=== PATIENT | female | born 1980 | race Hispanic/Latino ===

== ENCOUNTER 2017-05-01 13:42 | Observation (INO) | payer OTHER, BC ==
[~2017-05-01] VITALS: Ht 157.5 cm; Wt 93.9 kg
[2017-05-01 14:32] LABS: APPEARANCE,URINE Cloudy (CLEAR); BASOPHILS % (AUTO) 1.2 % (0.0-5.0); BILIRUBIN,URINE Negative (NEGATIVE); COLOR,URINE Yellow (YELLOW); EOSINOPHILS % (AUTO) 1.5 % (0.0-8.0); GLUCOSE, URINE (UA) Negative (NEGATIVE); HEMATOCRIT 36.1 % (36-48); KETONES,URINE Negative (NEGATIVE); LEUKOCYTE ESTERASE ,URINE Large (NEGATIVE); LYMPHOCYTES % (AUTO) 34.9 % (21.0-51.0); MEAN CORPUSCULAR HEMOGLOBIN 29.1 pg (27.0-33.0); MEAN CORPUSCULAR HGB CONC 34.3 g/dL (32.0-36.0); MEAN CORPUSCULAR VOLUME 84.8 fL (79-99); MONOCYTES % (AUTO) 7.7 % (3.0-13.0); NEUTROPHILS % (AUTO) 54.7 % (40.0-77.0); NITRATE,URINE Negative (NEGATIVE); OCCULT BLOOD,URINE Trace (NEGATIVE); PH,URINE 6.5 (5.0-8.0); PLATELET COUNT (AUTO) 335 K/uL (130-400); PROTEIN,URINE Negative (NEGATIVE); RED BLOOD CELL COUNT(AUTO) 4.25 MIL/uL (4.00-5.50); RED CELL DISTRIBUTION WIDTH 16.4 % (11.0-15.5); UROBILINOGEN,URINE 0.2 mg/dL (0.2-1.0); WHITE BLOOD COUNT (AUTO) 12.5 K/uL (4.8-10.8)
[2017-05-01 14:39] LABS: BACTERIA,URINE Few /HPF (None Seen); RBC,URINE 0-1 /HPF (0-1); RENAL EPITHELIAL CELLS,URINE Few /LPF (None Seen); TRANSITIONAL EPI CELLS,URINE Few /LPF (None Seen); WBC,URINE 51-100 /HPF (0-1)
[2017-05-01 14:41] LABS: POTASSIUM 3.6 mmol/L (3.5-5.1)
[2017-05-01 14:47] LABS: ALBUMIN 3.4 g/dL (3.5-5.0); BILIRUBIN,TOTAL 0.4 mg/dL (0.2-1.0); TOTAL PROTEIN, SERUM 7.3 g/dL (6.0-8.3)
[2017-05-01] MEDS ORDERED: HYDROCORTISONE SOD SUCCINATE 100 MG/2 ML VIAL ONE (14:53)
[2017-05-01] MEDS ORDERED: CEFTRIAXONE SODIUM 1 GM ONE (14:54)
[2017-05-01] MEDS ORDERED: PROMETHAZINE HCL 25 MG/ML 1ML AMPULE IM ONE (14:54)
[2017-05-01] MEDS ORDERED: MORPHINE SULFATE 4 MG/1ML SYG ONE ×2 (14:55→16:11)
[2017-05-01] MEDS ORDERED: DiphenhydrAMINE HCL 50 MG/ML VIAL ONE ×2 (15:29→16:10)
[2017-05-01 18:38] VITALS: BP 123/53
[2017-05-01] MEDS ORDERED: ONDANSETRON HCL 4 MG/2 ML VIAL IVP PRN (19:15)
[2017-05-01 20:00] VITALS: BP 112/86
[2017-05-01] MEDS ORDERED: LEVOFLOXACIN 500 MG/D5W 100 ML 100 ML IV SCH (21:00)
[2017-05-01] MEDS ORDERED: SODIUM CHLORIDE 0.9% 250 ML IV ONE (21:05)
[2017-05-01] MEDS: MORPHINE SULFATE 2 MG/ML 1ML SYG IVP PRN (21:11)
[2017-05-01] MEDS ORDERED: DIPHENHYDRAMINE HCL 25 MG CAPSULE PO PRN (21:45)
[2017-05-01] MEDS: SODIUM CHLORIDE 0.9% 1000ML 1,000 ML IV SCH (22:56)
[2017-05-01] MEDS: MEPERIDINE-PF 25 MG/ML SYG IVP PRN (23:10)
[2017-05-01 23:20] VITALS: BP 97/62
[2017-05-02] MEDS: MORPHINE SULFATE 2 MG/ML 1ML SYG IVP PRN ×2 (02:07→09:27)
[2017-05-02 03:21] VITALS: BP 97/68
[2017-05-02] MEDS: MEPERIDINE-PF 25 MG/ML SYG IVP PRN (05:30)
[2017-05-02 06:17] LABS: CREATININE 0.9 mg/dL (0.5-1.5); POTASSIUM 4.1 mmol/L (3.5-5.1)
[2017-05-02] MEDS: SODIUM CHLORIDE 0.9% 1000ML 1,000 ML IV SCH (07:45)
[2017-05-02 08:06] VITALS: BP 109/75
[2017-05-02] MEDS ORDERED: DEXAMETHASONE 4 MG TAB PO SCH (09:00)
[2017-05-02] MEDS ORDERED: ENOXAPARIN SODIUM 40 MG/0.4 ML SYRINGE SQ SCH (09:00)
[2017-05-02] MEDS ORDERED: PANTOPRAZOLE SODIUM 40 MG TABLET.DR PO SCH (09:00)
[2017-05-02 11:30] VITALS: BP 91/66
[2017-05-02] MEDS ORDERED: HEPARIN SODIUM/PF 100UNIT/ML 5ML SYRINGE IV SCH (11:30)
== END 2017-05-02 12:30 | disposition home or self-care (01) ==
LOC: EDH 13:42 → EDHIP 17:19 → INTOOBSV 17:19 → 4CH 18:13
PROVIDERS: ADMIT Family Medicine; ATTEND Family Medicine
DX: N39.0 Urinary tract infection, site not specified (principal); E27.40 Unspecified adrenocortical insufficiency; Z82.3 Family history of stroke; Z80.0 Family history of malignant neoplasm of digestive organs; Z82.49 Family history of ischemic heart disease and other diseases of the circulatory system; Z83.3 Family history of diabetes mellitus; Z87.442 Personal history of urinary calculi
CPT/HCPCS: 36415 ×2; 76770; 80048; 80053; 81001; 85025; 87040 ×2; 87088; 87186; 96361 ×2; 96365; 96372; 96375 ×2; 96376; 99285; G0378 ×19; J0696; J1200 ×2; J1642; J1650; J1720; J1956; J2175 ×2; J2270 ×2; J2405; J2550; J7030 ×3; J8540; Q0163

== ENCOUNTER 2017-05-02 22:17 | Inpatient (IN) | payer OTHER, BC ==
[~2017-05-02] VITALS: Ht 157.5 cm; Wt 94.3 kg
[2017-05-02] MEDS ORDERED: VANCOMYCIN 1GM+NS 250ML 250 ML IV ONE (22:41)
[2017-05-02] MEDS ORDERED: MORPHINE SULFATE 4 MG/1ML SYG ONE (22:42)
[2017-05-02] MEDS ORDERED: VANCOMYCIN PROTOCOL PER PHARMACY IV SCH (23:15)
[2017-05-03] VITALS (7 sets, daily range): BP systolic 106–136; BP diastolic 63–78
[2017-05-03] MEDS ORDERED: MEPERIDINE-PF 25 MG/ML SYG IVP PRN (01:30)
[2017-05-03] MEDS ORDERED: ONDANSETRON HCL 4 MG/2 ML VIAL ONE ×2 (01:37→21:42)
[2017-05-03] MEDS: DiphenhydrAMINE HCL 50 MG/ML VIAL IVP PRN ×4 (01:47→21:47)
[2017-05-03] MEDS: MORPHINE SULFATE 2 MG/ML 1ML SYG IVP PRN ×4 (03:50→19:56)
[2017-05-03] MEDS ORDERED: PHARMACY COMMUNICATION MISC SCH (06:45)
[2017-05-03] MEDS ORDERED: COMPOUND IV REFRIGERATED 1 EACH IVSOLN MISC PRN (06:45)
[2017-05-03 08:05] LABS: BASOPHILS % (AUTO) 0.5 % (0.0-5.0); HEMATOCRIT 33.6 % (36-48); LYMPHOCYTES % (AUTO) 13.9 % (21.0-51.0); MEAN CORPUSCULAR HEMOGLOBIN 28.7 pg (27.0-33.0); MEAN CORPUSCULAR HGB CONC 33.7 g/dL (32.0-36.0); MEAN CORPUSCULAR VOLUME 85.4 fL (79-99); MONOCYTES % (AUTO) 6.8 % (3.0-13.0); NEUTROPHILS % (AUTO) 78.8 % (40.0-77.0); PLATELET COUNT (AUTO) 316 K/uL (130-400); RED BLOOD CELL COUNT(AUTO) 3.94 MIL/uL (4.00-5.50); RED CELL DISTRIBUTION WIDTH 16.7 % (11.0-15.5); WHITE BLOOD COUNT (AUTO) 12.3 K/uL (4.8-10.8)
[2017-05-03 08:23] LABS: CREATININE 0.9 mg/dL (0.5-1.5); POTASSIUM 3.9 mmol/L (3.5-5.1)
[2017-05-03] MEDS: PANTOPRAZOLE SODIUM 40 MG TABLET.DR PO SCH (09:21)
[2017-05-03] MEDS: DEXAMETHASONE 4 MG TAB PO SCH ×2 (09:21→19:57)
[2017-05-03] MEDS: ENOXAPARIN SODIUM 40 MG/0.4 ML SYRINGE SQ SCH (09:23)
[2017-05-03] MEDS: VANCOMYCIN 1.5 GM in SODIUM CHLORIDE 0.9% 250 ML IV SCH ×2 (09:24→19:55)
[2017-05-04] MEDS: MORPHINE SULFATE 2 MG/ML 1ML SYG IVP PRN ×6 (01:16→23:37)
[2017-05-04 04:20] VITALS: BP 107/72
[2017-05-04] MEDS: ONDANSETRON HCL 4 MG/2 ML VIAL IVP PRN ×3 (05:26→18:19)
[2017-05-04] MEDS: DiphenhydrAMINE HCL 50 MG/ML VIAL IVP PRN ×3 (05:27→18:19)
[2017-05-04 08:00] VITALS: BP 118/67
[2017-05-04] MEDS: DEXAMETHASONE 4 MG TAB PO SCH ×2 (09:39→20:22)
[2017-05-04] MEDS: ENOXAPARIN SODIUM 40 MG/0.4 ML SYRINGE SQ SCH (09:39)
[2017-05-04] MEDS: PANTOPRAZOLE SODIUM 40 MG TABLET.DR PO SCH (09:39)
[2017-05-04] MEDS: VANCOMYCIN 1.5 GM in SODIUM CHLORIDE 0.9% 250 ML IV SCH (09:50)
[2017-05-04 11:41] VITALS: BP 120/71
[2017-05-04 15:59] VITALS: BP 101/64
[2017-05-04 19:05] VITALS: BP 112/78
[2017-05-04 23:15] VITALS: BP 107/65
[2017-05-05] MEDS: DiphenhydrAMINE HCL 50 MG/ML VIAL IVP PRN ×4 (00:39→20:55)
[2017-05-05] MEDS: ONDANSETRON HCL 4 MG/2 ML VIAL IVP PRN ×4 (00:39→20:46)
[2017-05-05 03:15] VITALS: BP 107/62
[2017-05-05] MEDS: MORPHINE SULFATE 2 MG/ML 1ML SYG IVP PRN ×4 (03:32→18:19)
[2017-05-05] MEDS ORDERED: CETIRIZINE PO (04:44)
[2017-05-05] MEDS ORDERED: BUSP10TA3 PO (04:44)
[2017-05-05] MEDS ORDERED: [UNRECOGNIZED DRUG - OTHER] PO (04:44)
[2017-05-05] MEDS ORDERED: DEXA2TAB PO (04:44)
[2017-05-05] MEDS ORDERED: TRAZ-147 PO (04:44)
[2017-05-05] MEDS ORDERED: PRIMARIN PO (04:44)
[2017-05-05 05:25] LABS: HEMATOCRIT 34.6 % (36-48); MEAN CORPUSCULAR HEMOGLOBIN 29.2 pg (27.0-33.0); MEAN CORPUSCULAR HGB CONC 34.1 g/dL (32.0-36.0); MEAN CORPUSCULAR VOLUME 85.8 fL (79-99); PLATELET COUNT (AUTO) 326 K/uL (130-400); RED BLOOD CELL COUNT(AUTO) 4.04 MIL/uL (4.00-5.50); RED CELL DISTRIBUTION WIDTH 16.7 % (11.0-15.5)
[2017-05-05 05:36] LABS: BAND NEUTROPHILS % (MANUAL) 6 % (0-2); LYMPHOCYTES % (MANUAL) 18 % (22-44); SEGMENTED NEUTROPHILS % 76 % (40-70)
[2017-05-05 05:37] LABS: MAN.DIFF COMMENT-IMPRESSION MANUAL DIFFERENTIAL; PLATELET MORPHOLOGY COMMENT ADEQUATE
[2017-05-05 07:00] VITALS: BP 105/75
[2017-05-05] MEDS: PANTOPRAZOLE SODIUM 40 MG TABLET.DR PO SCH (07:59)
[2017-05-05] MEDS: DEXAMETHASONE 4 MG TAB PO SCH ×2 (07:59→20:46)
[2017-05-05] MEDS: ENOXAPARIN SODIUM 40 MG/0.4 ML SYRINGE SQ SCH (07:59)
[2017-05-05 11:06] VITALS: BP 110/70
[2017-05-05] MEDS: VANCOMYCIN 1GM+NS 250ML 250 ML IV SCH (13:50)
[2017-05-05 15:00] VITALS: BP 101/68
[2017-05-05 19:36] VITALS: BP 106/72
[2017-05-05] MEDS: PREGABALIN 75 MG CAPSULE PO SCH (20:45)
[2017-05-05 23:37] VITALS: BP 116/77
[2017-05-06] MEDS: VANCOMYCIN 1GM+NS 250ML 250 ML IV SCH ×4 (00:32→22:00)
[2017-05-06] MEDS: MORPHINE SULFATE 2 MG/ML 1ML SYG IVP PRN ×4 (00:55→19:31)
[2017-05-06] MEDS: ONDANSETRON HCL 4 MG/2 ML VIAL IVP PRN ×4 (03:03→22:58)
[2017-05-06] MEDS: DiphenhydrAMINE HCL 50 MG/ML VIAL IVP PRN ×4 (03:04→22:57)
[2017-05-06 03:15] VITALS: BP 127/83
[2017-05-06 08:00] VITALS: BP 126/77
[2017-05-06] MEDS: PREGABALIN 75 MG CAPSULE PO SCH ×3 (09:28→22:57)
[2017-05-06] MEDS: DEXAMETHASONE 4 MG TAB PO SCH ×2 (09:28→21:43)
[2017-05-06] MEDS: PANTOPRAZOLE SODIUM 40 MG TABLET.DR PO SCH (09:28)
[2017-05-06] MEDS: ENOXAPARIN SODIUM 40 MG/0.4 ML SYRINGE SQ SCH (09:29)
[2017-05-06 12:00] VITALS: BP 117/76
[2017-05-06 16:00] VITALS: BP 122/78
[2017-05-06] MEDS ORDERED: VANCOMYCIN 1GM+NS 250ML 250 ML IV ONE (17:00)
[2017-05-06 20:00] VITALS: BP 113/83
[2017-05-07] VITALS (7 sets, daily range): BP systolic 99–123; BP diastolic 63–85
[2017-05-07] MEDS: VANCOMYCIN 1GM+NS 250ML 250 ML IV SCH (01:07)
[2017-05-07] MEDS: MORPHINE SULFATE 2 MG/ML 1ML SYG IVP PRN ×4 (01:29→20:38)
[2017-05-07] MEDS: DiphenhydrAMINE HCL 50 MG/ML VIAL IVP PRN ×4 (04:55→23:32)
[2017-05-07] MEDS: ONDANSETRON HCL 4 MG/2 ML VIAL IVP PRN ×4 (04:55→23:31)
[2017-05-07] MEDS: ENOXAPARIN SODIUM 40 MG/0.4 ML SYRINGE SQ SCH ×2 (09:00→09:05)
[2017-05-07] MEDS: PANTOPRAZOLE SODIUM 40 MG TABLET.DR PO SCH (09:03)
[2017-05-07] MEDS: DEXAMETHASONE 4 MG TAB PO SCH ×2 (09:03→20:37)
[2017-05-07] MEDS ORDERED: VANCOMYCIN 1.25 GM in SODIUM CHLORIDE 0.9% 250 ML IV SCH ×3 (10:00→10:56)
[2017-05-07] MEDS: PREGABALIN 75 MG CAPSULE PO SCH (10:55)
[2017-05-07] MEDS: CYCLOBENZAPRINE HCL 10 MG TABLET PO SCH (23:31)
[2017-05-08] MEDS: MORPHINE SULFATE 2 MG/ML 1ML SYG IVP PRN ×4 (02:58→20:13)
[2017-05-08 04:00] VITALS: BP 122/85
[2017-05-08] MEDS: DiphenhydrAMINE HCL 50 MG/ML VIAL IVP PRN ×4 (05:53→20:16)
[2017-05-08] MEDS: ONDANSETRON HCL 4 MG/2 ML VIAL IVP PRN ×3 (05:53→20:13)
[2017-05-08 08:00] VITALS: BP 112/74
[2017-05-08] MEDS: ENOXAPARIN SODIUM 40 MG/0.4 ML SYRINGE SQ SCH (08:58)
[2017-05-08] MEDS: PANTOPRAZOLE SODIUM 40 MG TABLET.DR PO SCH (08:58)
[2017-05-08] MEDS: DEXAMETHASONE 4 MG TAB PO SCH ×2 (08:58→21:00)
[2017-05-08] MEDS ORDERED: HEPARIN SODIUM/PF 100UNIT/ML 5ML SYRINGE IV SCH (11:30)
[2017-05-08] MEDS: CYCLOBENZAPRINE HCL 10 MG TABLET PO SCH ×3 (11:45→21:00)
[2017-05-08 12:00] VITALS: BP 110/76
[2017-05-08 16:00] VITALS: BP 125/85
[2017-05-08 20:00] VITALS: BP 117/75
== END 2017-05-08 21:20 | disposition home or self-care (01) | DRG 690 ==
LOC: EDH 22:17 → EDHIP 22:25 → 3CH 23:55
PROVIDERS: ADMIT Family Medicine; ATTEND Family Medicine
DX: N10 Acute pyelonephritis (principal); R78.81 Bacteremia; E27.40 Unspecified adrenocortical insufficiency; N20.0 Calculus of kidney; B95.8 Unspecified staphylococcus as the cause of diseases classified elsewhere; D72.829 Elevated white blood cell count, unspecified; E66.9 Obesity, unspecified; G89.29 Other chronic pain; H35.00 Unspecified background retinopathy; I10 Essential (primary) hypertension; Z87.442 Personal history of urinary calculi; Z87.440 Personal history of urinary (tract) infections; Z90.49 Acquired absence of other specified parts of digestive tract; Z88.1 Allergy status to other antibiotic agents; Z88.8 Allergy status to other drugs, medicaments and biological substances; Z68.38 Body mass index [BMI] 38.0-38.9, adult; Z83.3 Family history of diabetes mellitus; Z82.49 Family history of ischemic heart disease and other diseases of the circulatory system; Z82.3 Family history of stroke; Z80.0 Family history of malignant neoplasm of digestive organs
CPT/HCPCS: 36415; 80048; 80202; 85025; 87040; 93306; J1200; J1642; J1650; J2175; J2270; J2405; J3370; J7030; J8540

== ENCOUNTER 2017-05-29 16:38 | Emergency (ER) | payer BC, OTHER ==
[~2017-05-29 16:38] MED LIST: BUSP10TA3 PO; CETIRIZINE PO; DEXA2TAB PO; PRIMARIN PO; TRAZ-147 PO; [UNRECOGNIZED DRUG - OTHER] PO
[2017-05-29 17:10] LABS: APPEARANCE,URINE Clear (CLEAR); BILIRUBIN,URINE Negative (NEGATIVE); COLOR,URINE Yellow (YELLOW); GLUCOSE, URINE (UA) TRACE mg/dL (NEGATIVE); KETONES,URINE Negative (NEGATIVE); LEUKOCYTE ESTERASE ,URINE Negative (NEGATIVE); NITRATE,URINE Negative (NEGATIVE); OCCULT BLOOD,URINE Negative (NEGATIVE); PROTEIN,URINE Negative (NEGATIVE); UROBILINOGEN,URINE 0.2 mg/dL (0.2-1.0)
[2017-05-29] MEDS ORDERED: PROMETHAZINE HCL 25 MG/ML 1ML AMPULE IM ONE (17:11)
[2017-05-29 17:23] LABS: BACTERIA,URINE Rare /HPF (None Seen); RBC,URINE None Seen /HPF (0-1); SQUAMOUS EPITHELIAL CELL,UR 0-2 /LPF (0-2); WBC,URINE None Seen /HPF (0-1)
[2017-05-29] MEDS ORDERED: SODIUM CHLORIDE 0.9% 1000ML 1,000 ML IV ONE (17:28)
[2017-05-29 17:33] LABS: BASOPHILS % (AUTO) 0.1 % (0.0-5.0); HEMATOCRIT 32.3 % (36-48); LYMPHOCYTES % (AUTO) 6.1 % (21.0-51.0); MEAN CORPUSCULAR HEMOGLOBIN 29.6 pg (27.0-33.0); MEAN CORPUSCULAR HGB CONC 34.5 g/dL (32.0-36.0); MEAN CORPUSCULAR VOLUME 85.9 fL (79-99); MONOCYTES % (AUTO) 0.9 % (3.0-13.0); NEUTROPHILS % (AUTO) 92.9 % (40.0-77.0); PLATELET COUNT (AUTO) 342 K/uL (130-400); RED BLOOD CELL COUNT(AUTO) 3.76 MIL/uL (4.00-5.50); RED CELL DISTRIBUTION WIDTH 17.3 % (11.0-15.5); WHITE BLOOD COUNT (AUTO) 10.5 K/uL (4.8-10.8)
[2017-05-29 17:43] LABS: CREATININE 1.5 mg/dL (0.5-1.5); POTASSIUM 4.7 mmol/L (3.5-5.1)
[2017-05-29 17:48] LABS: ALBUMIN 3.1 g/dL (3.5-5.0); BILIRUBIN,TOTAL 0.4 mg/dL (0.2-1.0)
[2017-05-29] MEDS ORDERED: MORPHINE SULFATE 2 MG/ML 1ML SYG ONE ×2 (17:54→19:22)
[2017-05-29 18:13] LABS: AMPHET/METH SCREEN,URINE NEGATIVE (NEGATIVE); BARBITURATE SCREEN, URINE NEGATIVE (NEGATIVE); BENZODIAZEPINES SCREEN,URINE NEGATIVE (NEGATIVE); CANNABINOID SCREEN,URINE NEGATIVE (NEGATIVE); COCAINE SCREEN,URINE NEGATIVE (NEGATIVE); OPIATE SCREEN,URINE NEGATIVE (NEGATIVE); PHENCYCLIDINE SCREEN,URINE NEGATIVE (NEGATIVE)
[2017-05-29] MEDS ORDERED: DiphenhydrAMINE HCL 50 MG/ML VIAL ONE (18:49)
[2017-05-29] MEDS ORDERED: DEXAMETHASONE SOD PHOSPHATE 4 MG/ML 1ML VIAL ONE (18:55)
== END 2017-05-29 19:43 | disposition home or self-care (01) ==
LOC: EDH 16:38
DX: E87.1 Hypo-osmolality and hyponatremia (principal); E86.0 Dehydration; M54.5 Low back pain; Z88.6 Allergy status to analgesic agent; Z88.8 Allergy status to other drugs, medicaments and biological substances
CPT/HCPCS: 36415; 80053; 80305; 81001; 83690; 85025; 87088; 87186; 96361; 96372; 96374; 96375; 99284; J1100; J1200; J2550; J7030

== ENCOUNTER 2017-06-03 23:02 | Emergency (ER) | payer BC ==
[2017-06-04] MEDS ORDERED: PROMETHAZINE HCL 25 MG/ML 1ML AMPULE IM ONE (00:32)
[2017-06-04] MEDS ORDERED: METHYLPREDNISOLONE SOD SUCC 125MG/2ML VIAL ONE (00:33)
[2017-06-04 00:40] LABS: HCG,QUAL RESULT NEGATIVE (NEGATIVE)
[2017-06-04 00:41] LABS: APPEARANCE,URINE CLEAR (CLEAR); COLOR,URINE YELLOW (YELLOW); PH,URINE 5.5 (5.0-8.0); PROTEIN,URINE NEGATIVE (NEGATIVE)
[2017-06-04 00:42] LABS: BILIRUBIN,URINE N (NEGATIVE); GLUCOSE, URINE (UA) NEGATIVE (NEGATIVE); KETONES,URINE NEGATIVE (NEGATIVE); LEUKOCYTE ESTERASE ,URINE NEGATIVE (NEGATIVE); NITRATE,URINE NEGATIVE (NEGATIVE); OCCULT BLOOD,URINE NEGATIVE (NEGATIVE); UROBILINOGEN,URINE 0.2 mg/dL (0.2-1.0)
[2017-06-04 01:16] LABS: BASOPHILS % (AUTO) 0.4 % (0.0-5.0); EOSINOPHILS % (AUTO) 0.7 % (0.0-8.0); HEMATOCRIT 32.2 % (36-48); LYMPHOCYTES % (AUTO) 23.4 % (21.0-51.0); MEAN CORPUSCULAR HEMOGLOBIN 30.3 pg (27.0-33.0); MEAN CORPUSCULAR HGB CONC 35.1 g/dL (32.0-36.0); MEAN CORPUSCULAR VOLUME 86.3 fL (79-99); MONOCYTES % (AUTO) 9.6 % (3.0-13.0); NEUTROPHILS % (AUTO) 65.9 % (40.0-77.0); NUCLEATED RED BLOOD CELLS 0.1 % (0.0-0.19); PLATELET COUNT (AUTO) 386 K/uL (130-400); RED BLOOD CELL COUNT(AUTO) 3.74 MIL/uL (4.00-5.50); RED CELL DISTRIBUTION WIDTH 17.9 % (11.0-15.5); WHITE BLOOD COUNT (AUTO) 9.7 K/uL (4.8-10.8)
[2017-06-04 01:26] LABS: CREATININE 0.9 mg/dL (0.5-1.5); POTASSIUM 3.8 mmol/L (3.5-5.1)
[2017-06-04 01:30] LABS: ALBUMIN 3.2 g/dL (3.5-5.0); BILIRUBIN,TOTAL 0.4 mg/dL (0.2-1.0); TOTAL PROTEIN, SERUM 7.1 g/dL (6.0-8.3)
== END 2017-06-04 02:07 | disposition home or self-care (01) ==
LOC: EDH 23:02
DX: E27.40 Unspecified adrenocortical insufficiency (principal); R11.2 Nausea with vomiting, unspecified; Z88.6 Allergy status to analgesic agent; Z88.8 Allergy status to other drugs, medicaments and biological substances; Z88.1 Allergy status to other antibiotic agents; Z90.49 Acquired absence of other specified parts of digestive tract
CPT/HCPCS: 36415; 80053; 81003; 81025; 85025; 96372 ×2; 99284; J2550; J2930

== ENCOUNTER 2017-06-21 13:00 | Emergency (ER) | payer BC ==
[2017-06-21 14:00] LABS: BASOPHILS % (AUTO) 0.5 % (0.0-5.0); HEMATOCRIT 27.1 % (36-48); LYMPHOCYTES % (AUTO) 10.6 % (21.0-51.0); MEAN CORPUSCULAR HEMOGLOBIN 30.6 pg (27.0-33.0); MEAN CORPUSCULAR HGB CONC 35.4 g/dL (32.0-36.0); MEAN CORPUSCULAR VOLUME 86.5 fL (79-99); MONOCYTES % (AUTO) 12.3 % (3.0-13.0); NEUTROPHILS % (AUTO) 76.6 % (40.0-77.0); PLATELET COUNT (AUTO) 449 K/uL (130-400); RED BLOOD CELL COUNT(AUTO) 3.14 MIL/uL (4.00-5.50); RED CELL DISTRIBUTION WIDTH 18.6 % (11.0-15.5); WHITE BLOOD COUNT (AUTO) 13.6 K/uL (4.8-10.8)
[2017-06-21] MEDS ORDERED: METHYLPREDNISOLONE SOD SUCC 125MG/2ML VIAL ONE (14:02)
[2017-06-21] MEDS ORDERED: SODIUM CHLORIDE 0.9% 1000ML 1,000 ML IV ONE (14:02)
[2017-06-21 14:13] LABS: ALBUMIN 2.8 g/dL (3.5-5.0); BILIRUBIN,TOTAL 0.2 mg/dL (0.2-1.0); TOTAL PROTEIN, SERUM 6.7 g/dL (6.0-8.3)
[2017-06-21 14:17] LABS: APPEARANCE,URINE Clear (CLEAR); BILIRUBIN,URINE Negative (NEGATIVE); COLOR,URINE Yellow (YELLOW); GLUCOSE, URINE (UA) Negative (NEGATIVE); KETONES,URINE Negative (NEGATIVE); LEUKOCYTE ESTERASE ,URINE Moderate (NEGATIVE); NITRATE,URINE Negative (NEGATIVE); OCCULT BLOOD,URINE Negative (NEGATIVE); PH,URINE 6.5 (5.0-8.0); PROTEIN,URINE Negative (NEGATIVE); UROBILINOGEN,URINE 0.2 mg/dL (0.2-1.0)
[2017-06-21] MEDS ORDERED: PROMETHAZINE HCL 25 MG/ML 1ML AMPULE IM ONE (14:37)
[2017-06-21 14:49] LABS: AMPHET/METH SCREEN,URINE NEGATIVE (NEGATIVE); BACTERIA,URINE Few /HPF (None Seen); BARBITURATE SCREEN, URINE NEGATIVE (NEGATIVE); BENZODIAZEPINES SCREEN,URINE NEGATIVE (NEGATIVE); CANNABINOID SCREEN,URINE NEGATIVE (NEGATIVE); COCAINE SCREEN,URINE NEGATIVE (NEGATIVE); OPIATE SCREEN,URINE POSITIVE (NEGATIVE); PHENCYCLIDINE SCREEN,URINE NEGATIVE (NEGATIVE); RBC,URINE None Seen /HPF (0-1)
== END 2017-06-21 15:21 | disposition home or self-care (01) ==
LOC: EDH 13:00
DX: N39.0 Urinary tract infection, site not specified (principal); R11.2 Nausea with vomiting, unspecified; R19.7 Diarrhea, unspecified; Z90.49 Acquired absence of other specified parts of digestive tract; Z88.6 Allergy status to analgesic agent; Z88.8 Allergy status to other drugs, medicaments and biological substances; Z79.899 Other long term (current) drug therapy
CPT/HCPCS: 36415; 80053; 80305; 81001; 85025; 87804 ×2; 96361; 96374; 99284; J2550; J2930; J7030

== ENCOUNTER 2018-07-31 20:02 | Emergency (ER) | payer BC ==
[~2018-07-31 20:02] MED LIST changes: -TRAZ-147 PO; +TRAZ-187 PO
[2018-07-31 20:24] LABS: APPEARANCE,URINE Clear (CLEAR); BILIRUBIN,URINE Negative (NEGATIVE); COLOR,URINE Yellow (YELLOW); GLUCOSE, URINE (UA) Negative (NEGATIVE); KETONES,URINE Negative (NEGATIVE); LEUKOCYTE ESTERASE ,URINE Large (NEGATIVE); NITRATE,URINE Negative (NEGATIVE); OCCULT BLOOD,URINE Negative (NEGATIVE); PROTEIN,URINE Negative (NEGATIVE); UROBILINOGEN,URINE 0.2 mg/dL (0.2-1.0)
[2018-07-31 20:33] LABS: AMPHET/METH SCREEN,URINE NEGATIVE (NEGATIVE); BARBITURATE SCREEN, URINE NEGATIVE (NEGATIVE); BENZODIAZEPINES SCREEN,URINE NEGATIVE (NEGATIVE); CANNABINOID SCREEN,URINE NEGATIVE (NEGATIVE); COCAINE SCREEN,URINE NEGATIVE (NEGATIVE); OPIATE SCREEN,URINE POSITIVE (NEGATIVE); PHENCYCLIDINE SCREEN,URINE NEGATIVE (NEGATIVE)
[2018-07-31] MEDS ORDERED: METHYLPREDNISOLONE SOD SUCC 125MG/2ML VIAL ONE (20:35)
[2018-07-31] MEDS ORDERED: LEVOFLOXACIN 500 MG/D5W 100 ML 100 ML ONE (20:35)
[2018-07-31 20:47] LABS: BACTERIA,URINE None Seen /HPF (None Seen); RBC,URINE None Seen /HPF (0-1); TRANSITIONAL EPI CELLS,URINE Moderate /HPF (None Seen)
[2018-07-31 20:48] LABS: RENAL EPITHELIAL CELLS,URINE Rare /HPF (None Seen)
[2018-07-31 21:18] LABS: BASOPHILS % (AUTO) 1.3 % (0.0-5.0); EOSINOPHILS % (AUTO) 2.1 % (0.0-8.0); HEMATOCRIT 35.6 % (36-48); LYMPHOCYTES % (AUTO) 41.3 % (21.0-51.0); MEAN CORPUSCULAR HEMOGLOBIN 26.4 pg (27.0-33.0); MEAN CORPUSCULAR HGB CONC 33.2 g/dL (32.0-36.0); MEAN CORPUSCULAR VOLUME 79.6 fL (79-99); MONOCYTES % (AUTO) 9.7 % (3.0-13.0); NEUTROPHILS % (AUTO) 45.6 % (40.0-77.0); NUCLEATED RED BLOOD CELLS 0.1 % (0.0-0.19); PLATELET COUNT (AUTO) 353 K/uL (130-400); RED BLOOD CELL COUNT(AUTO) 4.48 MIL/uL (4.00-5.50); RED CELL DISTRIBUTION WIDTH 20.3 % (11.0-15.5); WHITE BLOOD COUNT (AUTO) 8.5 K/uL (4.8-10.8)
[2018-07-31 21:33] LABS: CREATININE 0.7 mg/dL (0.5-1.5); INR 1.02 (0.85-1.15); PARTIAL THROMBOPLASTIN TIME 29.4 SEC (26.3-35.5); POTASSIUM 3.8 mmol/L (3.5-5.1); PROTHROMBIN TIME 10.7 SEC (9.6-11.6)
[2018-07-31 21:37] LABS: ALBUMIN 3.4 g/dL (3.5-5.0); BILIRUBIN,TOTAL 0.4 mg/dL (0.2-1.0)
== END 2018-07-31 22:49 | disposition home or self-care (01) ==
LOC: EDH 20:02
DX: N39.0 Urinary tract infection, site not specified (principal); E86.0 Dehydration; E27.8 Other specified disorders of adrenal gland; N32.89 Other specified disorders of bladder; Z87.442 Personal history of urinary calculi; Z90.49 Acquired absence of other specified parts of digestive tract; Z88.6 Allergy status to analgesic agent; Z88.8 Allergy status to other drugs, medicaments and biological substances
CPT/HCPCS: 36415; 74176; 80053; 80305; 81001; 82150; 82550; 83690; 84484; 85025; 85610; 85730; 87040; 87088; 93005; 96365; 96366; 96375; 99285; J1956; J2930

== ENCOUNTER 2020-03-12 09:40 | Emergency (ER) | payer OTHER ==
[~2020-03-12 09:40] MED LIST changes: -BUSP10TA3 PO; -CETIRIZINE PO; -DEXA2TAB PO; +PRED5TAB PO; -TRAZ-187 PO
[2020-03-12 10:27] LABS: BASOPHILS % (AUTO) 0.5 % (0.0-5.0); EOSINOPHILS % (AUTO) 0.8 % (0.0-8.0); HEMATOCRIT 39.9 % (36-48); LYMPHOCYTES % (AUTO) 27.4 % (21.0-51.0); MEAN CORPUSCULAR HEMOGLOBIN 28.6 pg (27.0-33.0); MEAN CORPUSCULAR HGB CONC 32.1 g/dL (32.0-36.0); MEAN CORPUSCULAR VOLUME 89.3 fL (79-99); MONOCYTES % (AUTO) 9.3 % (3.0-13.0); NEUTROPHILS % (AUTO) 59.8 % (40.0-77.0); NUCLEATED RED BLOOD CELLS 0.2 % (0.0-0.19); PLATELET COUNT (AUTO) 330 K/uL (130-400); RED BLOOD CELL COUNT(AUTO) 4.47 MIL/uL (4.00-5.50); RED CELL DISTRIBUTION WIDTH 25.3 % (11.0-15.5); WHITE BLOOD COUNT (AUTO) 13.3 K/uL (4.8-10.8)
[2020-03-12] MEDS ORDERED: ONDANSETRON HCL 4 MG/2 ML VIAL ONE ×2 (10:29→15:19)
[2020-03-12] MEDS ORDERED: DiphenhydrAMINE HCL 50 MG/ML VIAL ONE ×2 (10:29→15:19)
[2020-03-12] MEDS ORDERED: METHYLPREDNISOLONE SOD SUCC 125MG/2ML VIAL ONE (10:29)
[2020-03-12] MEDS ORDERED: MORPHINE SULFATE 4 MG/1ML SYG ONE ×2 (10:30→14:26)
[2020-03-12] MEDS ORDERED: KETOROLAC TROMETHAMINE 30MG/ML ONE (10:30)
[2020-03-12 10:55] LABS: ALBUMIN 3.3 g/dL (3.5-5.0); BILIRUBIN,TOTAL 0.2 mg/dL (0.2-1.0); TOTAL PROTEIN, SERUM 7.1 g/dL (6.0-8.3)
[2020-03-12 11:04] LABS: POTASSIUM 3.6 mmol/L (3.5-5.1)
[2020-03-12 11:26] LABS: APPEARANCE,URINE Clear (CLEAR); BILIRUBIN,URINE Negative (NEGATIVE); COLOR,URINE Yellow (YELLOW); GLUCOSE, URINE (UA) Negative (NEGATIVE); KETONES,URINE Negative (NEGATIVE); LEUKOCYTE ESTERASE ,URINE Negative (NEGATIVE); NITRATE,URINE Negative (NEGATIVE); OCCULT BLOOD,URINE Nonhemolyzed Trace (NEGATIVE); PROTEIN,URINE Negative (NEGATIVE); UROBILINOGEN,URINE 0.2 mg/dL (0.2-1.0)
[2020-03-12 11:58] LABS: BACTERIA,URINE Rare /HPF (None Seen); RBC,URINE 0-1 /HPF (0-1); WBC,URINE None Seen /HPF (0-1)
[2020-03-12 11:59] LABS: SQUAMOUS EPITHELIAL CELL,UR 0-2 /HPF (0-2)
[2020-03-12] MEDS ORDERED: MORPHINE SULFATE 2 MG/ML 1ML SYG ONE (15:19)
[2020-03-12] MEDS ORDERED: HEPARIN SODIUM/PF 100UNIT/ML 5ML SYRINGE IV ONE (15:29)
== END 2020-03-12 16:50 | disposition home or self-care (01) ==
LOC: EDH 09:40
DX: E86.0 Dehydration (principal); E27.40 Unspecified adrenocortical insufficiency; R11.2 Nausea with vomiting, unspecified; R10.31 Right lower quadrant pain; Z88.6 Allergy status to analgesic agent; Z88.1 Allergy status to other antibiotic agents; Z88.8 Allergy status to other drugs, medicaments and biological substances; Z90.49 Acquired absence of other specified parts of digestive tract
CPT/HCPCS: 36415; 74176; 80053; 81001; 85025; 87040 ×2; 96361; 96374; 96375; 96376; 99285; J1200 ×2; J1642; J1885; J2270 ×2; J2405 ×2; J2930

== ENCOUNTER 2020-03-13 14:34 | Observation (INO) | payer OTHER ==
[~2020-03-13] VITALS: Ht 157.5 cm; Wt 95.6 kg
[2020-03-13] MEDS ORDERED: METHYLPREDNISOLONE SOD SUCC 125MG/2ML VIAL ONE (15:14)
[2020-03-13] MEDS ORDERED: DiphenhydrAMINE HCL 50 MG/ML VIAL ONE ×2 (15:14→17:56)
[2020-03-13] MEDS ORDERED: MORPHINE SULFATE 4 MG/1ML SYG ONE (15:14)
[2020-03-13] MEDS ORDERED: ONDANSETRON HCL 4 MG/2 ML VIAL ONE (15:14)
[2020-03-13] MEDS ORDERED: LACTATED RINGERS 1000ML 1,000 ML IV ONE (15:15)
[2020-03-13 16:27] LABS: BASOPHILS % (AUTO) 0.2 % (0.0-5.0); EOSINOPHILS % (AUTO) 0.1 % (0.0-8.0); HEMATOCRIT 35.9 % (36-48); LYMPHOCYTES % (AUTO) 12.9 % (21.0-51.0); MEAN CORPUSCULAR HEMOGLOBIN 29.6 pg (27.0-33.0); MEAN CORPUSCULAR HGB CONC 33.4 g/dL (32.0-36.0); MEAN CORPUSCULAR VOLUME 88.4 fL (79-99); MONOCYTES % (AUTO) 8.4 % (3.0-13.0); NEUTROPHILS % (AUTO) 77.4 % (40.0-77.0); PLATELET COUNT (AUTO) 325 K/uL (130-400); RED BLOOD CELL COUNT(AUTO) 4.06 MIL/uL (4.00-5.50); RED CELL DISTRIBUTION WIDTH 25.1 % (11.0-15.5); WHITE BLOOD COUNT (AUTO) 19.7 K/uL (4.8-10.8)
[2020-03-13 16:36] LABS: CREATININE 0.9 mg/dL (0.5-1.5); POTASSIUM 4.2 mmol/L (3.5-5.1)
[2020-03-13 16:41] LABS: ALBUMIN 3.1 g/dL (3.5-5.0); BILIRUBIN,TOTAL 0.2 mg/dL (0.2-1.0); TOTAL PROTEIN, SERUM 6.7 g/dL (6.0-8.3)
[2020-03-13] MEDS ORDERED: MORPHINE SULFATE 2 MG/ML 1ML SYG ONE ×2 (17:57→21:47)
[2020-03-13] MEDS ORDERED: DIPHENHYDRAMINE HCL 25 MG CAPSULE PO PRN (18:45)
[2020-03-13] MEDS ORDERED: ONDANSETRON HCL 4 MG/2 ML VIAL IV PRN (18:45)
[2020-03-13] MEDS ORDERED: NITROGLYCERIN 0.4 MG SL TAB SL PRN (18:45)
[2020-03-13 18:56] LABS: INR 0.9 (0.85-1.15); PROTHROMBIN TIME 9.8 SEC (9.6-11.6)
[2020-03-13] MEDS ORDERED: FAMOTIDINE 20MG TAB 20 MG TAB ONE (19:56)
[2020-03-13] MEDS ORDERED: SODIUM CHLORIDE 0.9% 1000ML 1,000 ML IV ONE (20:09)
[2020-03-13 23:09] LABS: APPEARANCE,URINE Clear (CLEAR); BILIRUBIN,URINE Negative (NEGATIVE); COLOR,URINE Yellow (YELLOW); GLUCOSE, URINE (UA) Negative (NEGATIVE); KETONES,URINE Negative (NEGATIVE); LEUKOCYTE ESTERASE ,URINE Negative (NEGATIVE); NITRATE,URINE Negative (NEGATIVE); OCCULT BLOOD,URINE Trace (NEGATIVE); PH,URINE 5.5 (5.0-8.0); PROTEIN,URINE Negative (NEGATIVE); UROBILINOGEN,URINE 0.2 mg/dL (0.2-1.0)
[2020-03-13 23:16] LABS: AMPHET/METH SCREEN,URINE NEGATIVE (NEGATIVE); BARBITURATE SCREEN, URINE NEGATIVE (NEGATIVE); BENZODIAZEPINES SCREEN,URINE NEGATIVE (NEGATIVE); CANNABINOID SCREEN,URINE NEGATIVE (NEGATIVE); COCAINE SCREEN,URINE NEGATIVE (NEGATIVE); OPIATE SCREEN,URINE NEGATIVE (NEGATIVE); PHENCYCLIDINE SCREEN,URINE NEGATIVE (NEGATIVE)
[2020-03-13 23:29] LABS: BACTERIA,URINE None Seen /HPF (None Seen); RBC,URINE None Seen /HPF (0-1); WBC,URINE None Seen /HPF (0-1)
[2020-03-14] MEDS ORDERED: DIPHENHYDRAMINE HCL 25 MG CAPSULE ONE (02:01)
[2020-03-14] MEDS ORDERED: ONDANSETRON HCL 4 MG/2 ML VIAL ONE ×2 (02:01→16:14)
[2020-03-14] MEDS ORDERED: MORPHINE SULFATE 2 MG/ML 1ML SYG ONE ×2 (02:02→05:49)
[2020-03-14] MEDS ORDERED: DiphenhydrAMINE HCL 50 MG/ML VIAL ONE ×2 (04:16→12:09)
[2020-03-14 04:36] LABS: HEMATOCRIT 36.9 % (36-48); MEAN CORPUSCULAR HEMOGLOBIN 28.5 pg (27.0-33.0); MEAN CORPUSCULAR HGB CONC 31.4 g/dL (32.0-36.0); MEAN CORPUSCULAR VOLUME 90.7 fL (79-99); PLATELET COUNT (AUTO) 320 K/uL (130-400); RED BLOOD CELL COUNT(AUTO) 4.07 MIL/uL (4.00-5.50); RED CELL DISTRIBUTION WIDTH 24.9 % (11.0-15.5); WHITE BLOOD COUNT (AUTO) 13.4 K/uL (4.8-10.8)
[2020-03-14 04:42] LABS: BAND NEUTROPHILS % (MANUAL) 1 % (0-2); LYMPHOCYTES % (MANUAL) 9 % (22-44); MAN.DIFF COMMENT-IMPRESSION MANUAL DIFFERENTIAL; MONOCYTES % (MANUAL) 9 % (2-9); PLATELET MORPHOLOGY COMMENT ADEQUATE; SEGMENTED NEUTROPHILS % 81 % (40-70)
[2020-03-14] MEDS: SODIUM CHLORIDE 0.9% 1000ML 1,000 ML IV SCH ×4 (04:45→20:57)
[2020-03-14 05:10] LABS: ALBUMIN 3.1 g/dL (3.5-5.0); BILIRUBIN,TOTAL 0.2 mg/dL (0.2-1.0); CREATININE 0.9 mg/dL (0.5-1.5); MAGNESIUM 1.7 mg/dL (1.80-2.40); POTASSIUM 4.5 mmol/L (3.5-5.1); TOTAL PROTEIN, SERUM 6.8 g/dL (6.0-8.3)
[2020-03-14] MEDS ORDERED: SODIUM CHLORIDE 0.9% 1000ML 1,000 ML IV ONE ×2 (05:58→08:32)
--- NOTE | 2020-03-14 08:20 | NUR ---
DR MATHEW here spoke to patient ,discussed plan of care , pt voices understanding
[2020-03-14 08:30] VITALS: BP 112/74
[2020-03-14] MEDS ORDERED: ENOXAPARIN SODIUM 30 MG/0.3 ML SQ ONE (08:33)
[2020-03-14] MEDS ORDERED: FERROUS SULFATE 325 MG TABLET.DR ONE (08:33)
[2020-03-14] MEDS ORDERED: FAMOTIDINE 20MG TAB 20 MG TAB ONE (08:34)
[2020-03-14] MEDS ORDERED: HYDROCORTISONE SOD SUCCINATE 100 MG/2 ML VIAL ONE (08:35)
[2020-03-14] MEDS: FAMOTIDINE 20MG TAB 20 MG TAB PO SCH ×3 (08:40→20:56)
[2020-03-14] MEDS: FERROUS SULFATE 325 MG TABLET.DR PO SCH ×3 (08:42→20:56)
[2020-03-14] MEDS: HYDROCORTISONE SOD SUCCINATE 100 MG/2 ML VIAL IV SCH ×3 (08:43→20:56)
[2020-03-14] MEDS: ENOXAPARIN SODIUM 30 MG/0.3 ML SQ SCH (08:43)
[2020-03-14] MEDS ORDERED: MORPHINE SULFATE 4 MG/1ML SYG ONE ×2 (10:38→16:14)
[2020-03-14] MEDS: MORPHINE SULFATE 4 MG/1ML SYG IV PRN (10:50)
[2020-03-14] MEDS ORDERED: MAGNESIUM 2GM PREMIX 50ML 50 ML IV ONE (12:09)
[2020-03-14] MEDS: MAGNESIUM 2GM PREMIX 50ML 50 ML IV SCH (12:11)
[2020-03-14] MEDS: DiphenhydrAMINE HCL 50 MG/ML VIAL IV PRN ×2 (12:12→18:15)
--- NOTE | 2020-03-14 12:42 | NUR ---
CM NOTE/IA UNABLE TO MEET WITH PATIENT AT BEDSIDE. IA DONE BY SANTOSH FARRIS. PER PATIENT, LIVES WITH MOTHER, HAS WALKER AND WHEELCHAIR, NO PROVIDER SERVICES OR HOME HEALTH, AND FEELS SAFE TO RETURN HOME ONCE DISCHARGED. PER PATIENT, SEES DR. NAVIN MATOS PCP. Addendum: 03/14/20 at 1244 by BARBARA CONCEPCION RN CM Amended: Links added.
[2020-03-14 19:47] VITALS: BP 118/71
--- NOTE | 2020-03-14 20:06 | NUR ---
PM ASSESSMENT PATIENT AWAKE AND ALERT. VOICES ALL NEEDS. NO COMPLAINTS OF PAIN VOICED AT THIS TIME. PATIENT REQUESTING A SANDWICH AND TWO JUICES AT THIS TIME. REDIRECTED THAT SHE IS ONLY ON A FULL LIQUID DIET, PATIENT THEN STATES THAT MD SAID IT WAS ADVANCED TOLERATED. REDIRECTED THE PATIENT THAT SHE IS ON A FULL LIQUID AND SHE WILL BE NPO AFTER MIDNIGHT. PATIENT UPSET AT THIS TIME. RESP EVEN AND UNLABORED. NO SOB NOTED. ON ROOM AIR. TOLERATING IVF WELL. NO SIGNS OF DISTRESS NOTED CALL LIGHT WITHIN REACH. WILL CONTINUE TO BE OBSERVED. Addendum: 03/14/20 at 2009 by MAXIM CONCEPCION RN RN Amended: Links added.
[2020-03-14] MEDS: MORPHINE SULFATE 2 MG/ML 1ML SYG IV PRN (20:57)
--- NOTE | 2020-03-14 22:00 | NUR ---
DR.GREEN SUAREZ CALLED AND AWARE OF PATIENT AND CONSULT. PER MD WILL NOT SEE PATIENT AT THIS TIME, IF ANY QUESTIONS HAVE HOSPITALIST CALL PEER TO PEER. NO NEW ORDERS AT THIS TIME. WILL CONTINUE TO OBSERVE PATIENT. Addendum: 03/14/20 at 2251 by MAXIM CONCEPCION RN RN Amended: Links added.
[2020-03-14 23:32] VITALS: BP 116/73
[2020-03-15] MEDS: DiphenhydrAMINE HCL 50 MG/ML VIAL IV PRN ×2 (01:53→10:03)
[2020-03-15] MEDS: MORPHINE SULFATE 2 MG/ML 1ML SYG IV PRN ×2 (01:53→11:36)
--- NOTE | 2020-03-15 03:22 | NUR ---
ROUNDS PATIENT AWAKE AND ALERT PLAYING A GAME ON HER CELLPHONE. NO COMPLAINTS OF PAIN VOICED AT THIS TIME. VITALS STABLE. AFEBRILE. TOLERATING IVF WELL. NO NAUSEA OR VOMITING NOTED. UP AD [place]. NO SIGNS OF DISTRESS NOTED. CALL LIGHT WITHIN REACH. WILL CONTINUE TO BE OBSERVED. Addendum: 03/15/20 at 0324 by MAXIM CONCEPCION RN RN Amended: Links added.
[2020-03-15 04:00] VITALS: BP 104/70
[2020-03-15] MEDS: MORPHINE SULFATE 4 MG/1ML SYG IV PRN ×3 (05:56→14:25)
[2020-03-15 06:12] LABS: HEMATOCRIT 36.5 % (36-48); MEAN CORPUSCULAR HEMOGLOBIN 28.9 pg (27.0-33.0); MEAN CORPUSCULAR HGB CONC 31.5 g/dL (32.0-36.0); MEAN CORPUSCULAR VOLUME 91.7 fL (79-99); RED BLOOD CELL COUNT(AUTO) 3.98 MIL/uL (4.00-5.50); WHITE BLOOD COUNT (AUTO) 8.9 K/uL (4.8-10.8)
[2020-03-15 06:32] LABS: ALBUMIN 2.9 g/dL (3.5-5.0); BILIRUBIN,TOTAL 0.4 mg/dL (0.2-1.0); CREATININE 0.9 mg/dL (0.5-1.5); MAGNESIUM 1.8 mg/dL (1.80-2.40); POTASSIUM 4.1 mmol/L (3.5-5.1); TOTAL PROTEIN, SERUM 6.2 g/dL (6.0-8.3)
[2020-03-15] MEDS: MAGNESIUM 2GM PREMIX 50ML 50 ML IV SCH (06:58)
[2020-03-15 08:00] VITALS: BP 133/87
[2020-03-15] MEDS: ENOXAPARIN SODIUM 30 MG/0.3 ML SQ SCH (09:00)
[2020-03-15] MEDS: HYDROCORTISONE SOD SUCCINATE 100 MG/2 ML VIAL IV SCH ×2 (10:02→14:00)
[2020-03-15] MEDS: SODIUM CHLORIDE 0.9% 1000ML 1,000 ML IV SCH (10:03)
[2020-03-15] MEDS: FAMOTIDINE 20MG TAB 20 MG TAB PO SCH (10:03)
[2020-03-15] MEDS: FERROUS SULFATE 325 MG TABLET.DR PO SCH ×2 (10:03→14:00)
[2020-03-15 11:00] VITALS: BP 123/86
[2020-03-15] MEDS ORDERED: HEPARIN SODIUM/PF 100UNIT/ML 5ML SYRINGE IV SCH (14:45)
== END 2020-03-15 15:31 | disposition home or self-care (01) ==
LOC: EDH 14:34 → INTOOBSV 18:27 → EDHIP 18:27 → 3AH 03-14 17:44
PROVIDERS: ADMIT Family Medicine; ATTEND Family Medicine
DX: E27.1 Primary adrenocortical insufficiency (principal); Z20.828 Contact with and (suspected) exposure to other viral communicable diseases; E86.0 Dehydration; E27.8 Other specified disorders of adrenal gland; E83.42 Hypomagnesemia; E66.01 Morbid (severe) obesity due to excess calories; D50.9 Iron deficiency anemia, unspecified; D72.829 Elevated white blood cell count, unspecified; N28.1 Cyst of kidney, acquired; R65.10 Systemic inflammatory response syndrome (SIRS) of non-infectious origin without acute organ dysfunction; Z79.52 Long term (current) use of systemic steroids; Z79.899 Other long term (current) drug therapy; Z68.38 Body mass index [BMI] 38.0-38.9, adult
CPT/HCPCS: 36415 ×3; 71046; 80053 ×3; 80305; 81001; 82270; 83735 ×3; 83993; 85025 ×2; 85027; 85610; 85730; 87040 ×2; 87046; 87177; 87324; 87426; 87507; 96361 ×3; 96365; 96366 ×3; 96375 ×2; 96376 ×2; 99284; G0378 ×45; J1200 ×7; J1642; J1650; J1720 ×3; J2270 ×6; J2405 ×2; J2930; J3475 ×2; J7030 ×4; J7120; Q0163; U0003

== ENCOUNTER 2020-03-23 10:32 | Observation (INO) | payer OTHER ==
[~2020-03-23] VITALS: Ht 157.5 cm; Wt 95.3 kg
[2020-03-23 10:44] LABS: APPEARANCE,URINE Clear (CLEAR); BILIRUBIN,URINE Negative (NEGATIVE); COLOR,URINE Yellow (YELLOW); GLUCOSE, URINE (UA) Negative (NEGATIVE); KETONES,URINE Negative (NEGATIVE); LEUKOCYTE ESTERASE ,URINE Trace (NEGATIVE); NITRATE,URINE Negative (NEGATIVE); OCCULT BLOOD,URINE Trace (NEGATIVE); PH,URINE 7.5 (5.0-8.0); PROTEIN,URINE Negative (NEGATIVE); UROBILINOGEN,URINE 0.2 mg/dL (0.2-1.0)
[2020-03-23 10:54] LABS: BACTERIA,URINE Rare /HPF (None Seen); RBC,URINE 0-1 /HPF (0-1); SQUAMOUS EPITHELIAL CELL,UR Rare /HPF (0-2); WBC,URINE 0-1 /HPF (0-1)
[2020-03-23] MEDS ORDERED: SODIUM CHLORIDE 0.9% 1000ML 1,000 ML IV ONE (11:13)
[2020-03-23 11:14] LABS: BASOPHILS % (AUTO) 0.2 % (0.0-5.0); EOSINOPHILS % (AUTO) 0.6 % (0.0-8.0); HEMATOCRIT 36.1 % (36-48); MEAN CORPUSCULAR HEMOGLOBIN 30.5 pg (27.0-33.0); MEAN CORPUSCULAR HGB CONC 33.8 g/dL (32.0-36.0); MEAN CORPUSCULAR VOLUME 90.3 fL (79-99); NEUTROPHILS % (AUTO) 71.5 % (40.0-77.0); PLATELET COUNT (AUTO) 273 K/uL (130-400); RED CELL DISTRIBUTION WIDTH 23.8 % (11.0-15.5); WHITE BLOOD COUNT (AUTO) 12.5 K/uL (4.8-10.8)
[2020-03-23 11:46] LABS: CREATININE 0.8 mg/dL (0.5-1.5); POTASSIUM 3.5 mmol/L (3.5-5.1)
[2020-03-23 11:51] LABS: ALBUMIN 3.3 g/dL (3.5-5.0); BILIRUBIN,TOTAL 0.2 mg/dL (0.2-1.0); TOTAL PROTEIN, SERUM 6.9 g/dL (6.0-8.3)
[2020-03-23] MEDS ORDERED: DiphenhydrAMINE HCL 50 MG/ML VIAL ONE ×3 (12:14→22:41)
[2020-03-23] MEDS ORDERED: ONDANSETRON HCL 4 MG/2 ML VIAL ONE (12:14)
[2020-03-23] MEDS ORDERED: MORPHINE SULFATE 4 MG/1ML SYG ONE ×2 (12:15→14:51)
[2020-03-23] MEDS ORDERED: HYDROCORTISONE SOD SUCCINATE 100 MG/2 ML VIAL IV SCH (12:30)
[2020-03-23] MEDS ORDERED: HYDROCORTISONE SOD SUCCINATE 100 MG/2 ML VIAL ONE (13:29)
[2020-03-23] MEDS ORDERED: SODIUM CHLORIDE 0.9% 1000ML 1,000 ML IV SCH (15:30)
[2020-03-23] MEDS ORDERED: PHARMACY COMMUNICATION MISC SCH ×2 (16:00→21:00)
[2020-03-23 17:03] LABS: BASOPHILS % (AUTO) 0.2 % (0.0-5.0); EOSINOPHILS % (AUTO) 0.1 % (0.0-8.0); HEMATOCRIT 36.5 % (36-48); MEAN CORPUSCULAR HEMOGLOBIN 30.2 pg (27.0-33.0); MEAN CORPUSCULAR HGB CONC 32.9 g/dL (32.0-36.0); MEAN CORPUSCULAR VOLUME 91.7 fL (79-99); MONOCYTES % (AUTO) 2.6 % (3.0-13.0); NEUTROPHILS % (AUTO) 91.1 % (40.0-77.0); PLATELET COUNT (AUTO) 244 K/uL (130-400); RED BLOOD CELL COUNT(AUTO) 3.98 MIL/uL (4.00-5.50); RED CELL DISTRIBUTION WIDTH 23.6 % (11.0-15.5); WHITE BLOOD COUNT (AUTO) 13.6 K/uL (4.8-10.8)
--- NOTE | 2020-03-23 17:15 | NUR ---
REPORT RECEIVED FROM EBONI JORDAN FROM ER AND PATIENT WAS TRANSFERED TO ROOM 302. PATIENT ORIENTED TO UNIT AND CALL LIGHT LEFT AT BEDSIDE TO CALL FOR ASSISTANCE NEEDED. PATIENT C/O PAIN AND REQUESTED PAIN MEDICATION. PAIN MEDICATIONS WERE REVIEWED WITH PATIENT AND 2MGS WERE GIVEN SINCE PATIENT HAD BEEN MEDICATED LESS THAN 4 HOURS. PATIENT HISTORY OBTAINED AND HOME MEDS ENTERED.
[2020-03-23 17:25] LABS: POTASSIUM 4.3 mmol/L (3.5-5.1)
[2020-03-23 17:47] VITALS: BP 115/76
[2020-03-23] MEDS: SODIUM CHLORIDE 0.9% 1000ML 1,000 ML IV SCH (17:53)
[2020-03-23] MEDS: MORPHINE SULFATE 2 MG/ML 1ML SYG IVP PRN ×2 (17:53→22:50)
--- NOTE | 2020-03-23 18:25 | NUR ---
LAST BREWSTER NP CALLED FOR PATIENT COMPLAINTS OF BEING HUNGRY AND PATIENT IS TO REMAIN NPO AND CAN HAVE CLEARS IN A.M. IF NO MORE NAUSEA OR VOMITING.
[2020-03-23 19:30] VITALS: BP 102/65
[2020-03-23] MEDS ORDERED: PRED5TAB44 PO (19:53)
[2020-03-23] MEDS ORDERED: PRIMARIN PO (19:53)
[2020-03-23] MEDS ORDERED: [UNRECOGNIZED DRUG - OTHER] PO (19:53)
--- NOTE | 2020-03-23 19:59 | NUR ---
TELEPHONE CALL MADE TO HAYLIE SIMENTAL AND ORDER RECIEVED FOR BENADRYL 25MGS PO Q6H PRN. PATIENT HAS BEEN STATING WANTING TO MAKE SURE SHE HAS BENADRYL ORDER IN CASE SHE NEEDS ZOFRAN.
[2020-03-23] MEDS ORDERED: DIPHENHYDRAMINE HCL 25 MG CAPSULE PO PRN (20:00)
[2020-03-23] MEDS: PREDNISONE 5 MG TABLET PO SCH (22:17)
[2020-03-23] MEDS: ONDANSETRON HCL 4 MG/2 ML VIAL IVP PRN (22:43)
[2020-03-24 00:17] VITALS: BP 97/62
[2020-03-24 04:11] VITALS: BP 95/65
[2020-03-24] MEDS: DiphenhydrAMINE HCL 50 MG/ML VIAL IV PRN ×3 (04:32→15:06)
[2020-03-24] MEDS: MORPHINE SULFATE 4 MG/1ML SYG IV PRN ×2 (04:33→10:38)
[2020-03-24] MEDS: SODIUM CHLORIDE 0.9% 1000ML 1,000 ML IV SCH (04:39)
[2020-03-24 08:12] VITALS: BP 116/81
[2020-03-24] MEDS: PREDNISONE 5 MG TABLET PO SCH ×2 (08:58→15:06)
[2020-03-24] MEDS ORDERED: FLUDROCORTISONE ACETATE 0.1 MG TABLET PO SCH (09:00)
[2020-03-24] MEDS ORDERED: TAMSULOSIN HCL 0.4 MG CAP.ER.24H PO SCH (09:00)
[2020-03-24] MEDS ORDERED: ESTROGENS,CONJUGATED 0.625 MG TAB PO SCH (09:00)
[2020-03-24] MEDS: ONDANSETRON HCL 4 MG/2 ML VIAL IVP PRN (10:38)
[2020-03-24 11:46] VITALS: BP 122/77
[2020-03-24] MEDS: MORPHINE SULFATE 2 MG/ML 1ML SYG IVP PRN (15:06)
[2020-03-24] MEDS ORDERED: HEPARIN SODIUM/PF 100UNIT/ML 5ML SYRINGE IV SCH (15:10)
--- NOTE | 2020-03-24 16:17 | NUR ---
DISCHARGE PATIENT GIVEN DISCHARGE INSTRUCTIONS AND EDUCATION ON FOLLOW UP APPOINTMENTS. PATIENT VERBALIZED UNDERSTANDING OF ALL EDUCATION GIVEN VIA TEACH BACK. NO DISTRESS NOTED UPON DISCHARGE. ALL BELONGINGS TAKEN WITH. PORTHACATH FLUSHED WITH 300 U HEPARIN PER PROTOCOL. AND D/C.
== END 2020-03-24 15:50 | disposition home or self-care (01) ==
LOC: EDH 10:32 → EDHIP 15:30 → 3AH 17:18
PROVIDERS: ADMIT Internal Medicine; ATTEND Internal Medicine
DX: R11.2 Nausea with vomiting, unspecified (principal); D72.829 Elevated white blood cell count, unspecified; D84.9 Immunodeficiency, unspecified; E27.1 Primary adrenocortical insufficiency; E86.0 Dehydration; R19.7 Diarrhea, unspecified; E66.9 Obesity, unspecified; E11.9 Type 2 diabetes mellitus without complications; D50.9 Iron deficiency anemia, unspecified; Q61.3 Polycystic kidney, unspecified; R10.9 Unspecified abdominal pain; Z90.49 Acquired absence of other specified parts of digestive tract; Z79.52 Long term (current) use of systemic steroids; Z79.899 Other long term (current) drug therapy; Z88.1 Allergy status to other antibiotic agents; Z88.6 Allergy status to analgesic agent; Z88.8 Allergy status to other drugs, medicaments and biological substances; Z68.39 Body mass index [BMI] 39.0-39.9, adult
CPT/HCPCS: 36415; 76770; 80053; 81001; 83605; 83690; 85025 ×2; 87324; 93005; 96361 ×2; 96374; 96375 ×2; 96376 ×3; 99285; G0378 ×23; J1200 ×6; J1642; J1720; J2270 ×4; J2405 ×3; J7030 ×3; J7512 ×4; 80048; Q0163

== ENCOUNTER 2020-03-26 12:38 | Emergency (ER) | payer OTHER ==
[~2020-03-26 12:38] MED LIST changes: +PRED5TAB44 PO; +[UNRECOGNIZED DRUG - OTHER] PO
[2020-03-26] MEDS ORDERED: DiphenhydrAMINE HCL 50 MG/ML VIAL ONE ×2 (13:16→14:43)
[2020-03-26] MEDS ORDERED: MORPHINE SULFATE 4 MG/1ML SYG ONE ×2 (13:17→14:43)
[2020-03-26] MEDS ORDERED: ONDANSETRON HCL 4 MG/2 ML VIAL ONE (13:17)
[2020-03-26 13:53] LABS: BASOPHILS % (AUTO) 0.6 % (0.0-5.0); EOSINOPHILS % (AUTO) 1.2 % (0.0-8.0); HEMATOCRIT 36.8 % (36-48); LYMPHOCYTES % (AUTO) 22.7 % (21.0-51.0); MEAN CORPUSCULAR HEMOGLOBIN 30.1 pg (27.0-33.0); MEAN CORPUSCULAR HGB CONC 32.3 g/dL (32.0-36.0); MEAN CORPUSCULAR VOLUME 92.9 fL (79-99); MONOCYTES % (AUTO) 7.5 % (3.0-13.0); NEUTROPHILS % (AUTO) 67.4 % (40.0-77.0); PLATELET COUNT (AUTO) 286 K/uL (130-400); RED BLOOD CELL COUNT(AUTO) 3.96 MIL/uL (4.00-5.50); RED CELL DISTRIBUTION WIDTH 22.6 % (11.0-15.5); WHITE BLOOD COUNT (AUTO) 8.4 K/uL (4.8-10.8)
[2020-03-26 14:06] LABS: CREATININE 0.9 mg/dL (0.5-1.5); POTASSIUM 3.7 mmol/L (3.5-5.1)
[2020-03-26 14:10] LABS: ALBUMIN 3.2 g/dL (3.5-5.0); BILIRUBIN,TOTAL 0.2 mg/dL (0.2-1.0)
[2020-03-26 15:12] LABS: APPEARANCE,URINE Clear (CLEAR); BILIRUBIN,URINE Negative (NEGATIVE); COLOR,URINE Yellow (YELLOW); GLUCOSE, URINE (UA) Negative (NEGATIVE); KETONES,URINE Negative (NEGATIVE); LEUKOCYTE ESTERASE ,URINE Small (NEGATIVE); NITRATE,URINE Negative (NEGATIVE); OCCULT BLOOD,URINE Negative (NEGATIVE); PROTEIN,URINE Negative (NEGATIVE); UROBILINOGEN,URINE 0.2 mg/dL (0.2-1.0)
[2020-03-26 15:57] LABS: BACTERIA,URINE Rare /HPF (None Seen); RBC,URINE 0-1 /HPF (0-1); SQUAMOUS EPITHELIAL CELL,UR 0-2 /HPF (0-2)
== END 2020-03-26 16:42 | disposition home or self-care (01) ==
LOC: EDH 12:38
DX: N39.0 Urinary tract infection, site not specified (principal); G89.4 Chronic pain syndrome; R19.7 Diarrhea, unspecified; R11.2 Nausea with vomiting, unspecified; Z88.6 Allergy status to analgesic agent; Z88.8 Allergy status to other drugs, medicaments and biological substances; Z88.1 Allergy status to other antibiotic agents
CPT/HCPCS: 36415; 80053; 81001; 82150; 83690; 85025; 93005; 96361; 96374; 96375; 96376; 99284; J1200 ×2; J2270 ×2; J2405

== ENCOUNTER 2020-03-27 19:20 | Emergency (ER) | payer OTHER ==
[2020-03-27 19:53] LABS: APPEARANCE,URINE SL CLOUDY (CLEAR); BILIRUBIN,URINE NEGATIVE (NEGATIVE); COLOR,URINE YELLOW (YELLOW); GLUCOSE, URINE (UA) NEGATIVE (NEGATIVE); KETONES,URINE NEGATIVE (NEGATIVE); LEUKOCYTE ESTERASE ,URINE SMALL (NEGATIVE); NITRATE,URINE NEGATIVE (NEGATIVE); OCCULT BLOOD,URINE TRACE-INTACT (NEGATIVE); PROTEIN,URINE NEGATIVE (NEGATIVE); UROBILINOGEN,URINE 0.2 mg/dL (0.2-1.0)
[2020-03-27] MEDS ORDERED: SODIUM CHLORIDE 0.9% 1000ML 1,000 ML IV ONE (19:56)
[2020-03-27] MEDS ORDERED: ONDANSETRON HCL 4 MG/2 ML VIAL ONE (19:59)
[2020-03-27] MEDS ORDERED: DiphenhydrAMINE HCL 50 MG/ML VIAL ONE (19:59)
[2020-03-27 20:04] LABS: BACTERIA,URINE Few /HPF (None Seen); SQUAMOUS EPITHELIAL CELL,UR Moderate /HPF (0-2); TRANSITIONAL EPI CELLS,URINE Few /HPF (None Seen)
[2020-03-27 20:09] LABS: BASOPHILS % (AUTO) 0.5 % (0.0-5.0); EOSINOPHILS % (AUTO) 1.6 % (0.0-8.0); HEMATOCRIT 37.3 % (36-48); LYMPHOCYTES % (AUTO) 25.5 % (21.0-51.0); MEAN CORPUSCULAR HEMOGLOBIN 30.2 pg (27.0-33.0); MEAN CORPUSCULAR HGB CONC 33.2 g/dL (32.0-36.0); MEAN CORPUSCULAR VOLUME 90.8 fL (79-99); MONOCYTES % (AUTO) 8.3 % (3.0-13.0); NEUTROPHILS % (AUTO) 63.3 % (40.0-77.0); PLATELET COUNT (AUTO) 321 K/uL (130-400); RED BLOOD CELL COUNT(AUTO) 4.11 MIL/uL (4.00-5.50); RED CELL DISTRIBUTION WIDTH 21.5 % (11.0-15.5); WHITE BLOOD COUNT (AUTO) 9.6 K/uL (4.8-10.8)
[2020-03-27 20:19] LABS: CREATININE 1.3 mg/dL (0.5-1.5); POTASSIUM 4.2 mmol/L (3.5-5.1)
[2020-03-27 20:24] LABS: ALBUMIN 3.2 g/dL (3.5-5.0); BILIRUBIN,TOTAL 0.3 mg/dL (0.2-1.0); TOTAL PROTEIN, SERUM 7.1 g/dL (6.0-8.3)
== END 2020-03-27 20:35 | disposition left against medical advice (07) ==
LOC: EDH 19:20
DX: R11.2 Nausea with vomiting, unspecified (principal); R19.7 Diarrhea, unspecified; R10.11 Right upper quadrant pain; Z90.49 Acquired absence of other specified parts of digestive tract; Z88.8 Allergy status to other drugs, medicaments and biological substances; Z88.6 Allergy status to analgesic agent; Z88.1 Allergy status to other antibiotic agents; Z88.2 Allergy status to sulfonamides
CPT/HCPCS: 36415; 80053; 81001; 85025; 87088; 96361; 96374; 96375; 99284; J1200; J2405; J7030

== ENCOUNTER 2020-04-06 10:22 | Emergency (ER) | payer OTHER ==
[2020-04-06] MEDS ORDERED: METHYLPREDNISOLONE SOD SUCC 125MG/2ML VIAL ONE (10:45)
[2020-04-06] MEDS ORDERED: ONDANSETRON HCL 4 MG/2 ML VIAL ONE (10:45)
[2020-04-06] MEDS ORDERED: MORPHINE SULFATE 4 MG/1ML SYG ONE ×2 (10:46→11:10)
[2020-04-06 10:49] LABS: APPEARANCE,URINE Clear (CLEAR); BILIRUBIN,URINE Negative (NEGATIVE); COLOR,URINE Yellow (YELLOW); GLUCOSE, URINE (UA) Negative (NEGATIVE); KETONES,URINE Negative (NEGATIVE); LEUKOCYTE ESTERASE ,URINE Trace (NEGATIVE); NITRATE,URINE Negative (NEGATIVE); OCCULT BLOOD,URINE Negative (NEGATIVE); PH,URINE 7.5 (5.0-8.0); PROTEIN,URINE Negative (NEGATIVE); UROBILINOGEN,URINE 0.2 mg/dL (0.2-1.0)
[2020-04-06 10:56] LABS: HCG,QUAL RESULT NEGATIVE (NEGATIVE)
[2020-04-06 10:57] LABS: AMPHET/METH SCREEN,URINE NEGATIVE (NEGATIVE); BARBITURATE SCREEN, URINE NEGATIVE (NEGATIVE); BENZODIAZEPINES SCREEN,URINE NEGATIVE (NEGATIVE); CANNABINOID SCREEN,URINE NEGATIVE (NEGATIVE); COCAINE SCREEN,URINE NEGATIVE (NEGATIVE); OPIATE SCREEN,URINE NEGATIVE (NEGATIVE); PHENCYCLIDINE SCREEN,URINE NEGATIVE (NEGATIVE)
[2020-04-06 11:06] LABS: BASOPHILS % (AUTO) 0.6 % (0.0-5.0); EOSINOPHILS % (AUTO) 0.6 % (0.0-8.0); HEMATOCRIT 35.5 % (36-48); LYMPHOCYTES % (AUTO) 22.5 % (21.0-51.0); MEAN CORPUSCULAR HEMOGLOBIN 30.7 pg (27.0-33.0); MEAN CORPUSCULAR HGB CONC 32.7 g/dL (32.0-36.0); MEAN CORPUSCULAR VOLUME 93.9 fL (79-99); MONOCYTES % (AUTO) 9.3 % (3.0-13.0); NEUTROPHILS % (AUTO) 63.9 % (40.0-77.0); NUCLEATED RED BLOOD CELLS 0.2 % (0.0-0.19); PLATELET COUNT (AUTO) 308 K/uL (130-400); RED BLOOD CELL COUNT(AUTO) 3.78 MIL/uL (4.00-5.50); RED CELL DISTRIBUTION WIDTH 20.4 % (11.0-15.5); WHITE BLOOD COUNT (AUTO) 12.6 K/uL (4.8-10.8)
[2020-04-06] MEDS ORDERED: SODIUM CHLORIDE 0.9% 1000ML 1,000 ML IV ONE (11:06)
[2020-04-06 11:26] LABS: BACTERIA,URINE Rare /HPF (None Seen); RBC,URINE 0-1 /HPF (0-1); SQUAMOUS EPITHELIAL CELL,UR Few /HPF (0-2); WBC,URINE 0-1 /HPF (0-1)
[2020-04-06] MEDS ORDERED: DiphenhydrAMINE HCL 50 MG/ML VIAL ONE (11:33)
[2020-04-06 11:37] LABS: CREATININE 0.2 mg/dL (0.5-1.5); POTASSIUM 3.4 mmol/L (3.5-5.1)
[2020-04-06 11:39] LABS: ALBUMIN 3.1 g/dL (3.5-5.0); BILIRUBIN,TOTAL 0.2 mg/dL (0.2-1.0); TOTAL PROTEIN, SERUM 6.8 g/dL (6.0-8.3)
[2020-04-06] MEDS ORDERED: MORPHINE SULFATE 2 MG/ML 1ML SYG ONE (12:25)
== END 2020-04-06 13:17 | disposition home or self-care (01) ==
LOC: EDH 10:22
DX: E86.0 Dehydration (principal); Z90.49 Acquired absence of other specified parts of digestive tract; Z88.8 Allergy status to other drugs, medicaments and biological substances; Z88.1 Allergy status to other antibiotic agents; Z88.2 Allergy status to sulfonamides; Z88.6 Allergy status to analgesic agent
CPT/HCPCS: 36415; 80053; 80305; 81001; 81025; 83690; 85025; 96361; 96374; 96375; 96376; 99284; J1200; J2270 ×2; J2405; J2930; J7030

== ENCOUNTER 2020-04-17 14:31 | Emergency (ER) | payer OTHER ==
[~2020-04-17 14:31] MED LIST changes: +LOPE2 PO; -PRED5TAB44 PO; -[UNRECOGNIZED DRUG - OTHER] PO
[2020-04-17] MEDS ORDERED: DiphenhydrAMINE HCL 50 MG/ML VIAL ONE ×2 (15:26→17:27)
[2020-04-17] MEDS ORDERED: METHYLPREDNISOLONE SOD SUCC 125MG/2ML VIAL ONE (15:26)
[2020-04-17] MEDS ORDERED: MORPHINE SULFATE 4 MG/1ML SYG ONE (15:26)
[2020-04-17] MEDS ORDERED: LACTATED RINGERS 1000ML 1,000 ML IV ONE (15:27)
[2020-04-17 15:59] LABS: BASOPHILS % (AUTO) 0.5 % (0.0-5.0); EOSINOPHILS % (AUTO) 0.6 % (0.0-8.0); HEMATOCRIT 37.9 % (36-48); LYMPHOCYTES % (AUTO) 20.1 % (21.0-51.0); MEAN CORPUSCULAR HEMOGLOBIN 30.7 pg (27.0-33.0); MEAN CORPUSCULAR VOLUME 93.1 fL (79-99); PLATELET COUNT (AUTO) 269 K/uL (130-400); RED BLOOD CELL COUNT(AUTO) 4.07 MIL/uL (4.00-5.50); RED CELL DISTRIBUTION WIDTH 19.4 % (11.0-15.5); WHITE BLOOD COUNT (AUTO) 15.1 K/uL (4.8-10.8)
[2020-04-17 16:14] LABS: POTASSIUM 3.9 mmol/L (3.5-5.1)
[2020-04-17 16:19] LABS: ALBUMIN 3.4 g/dL (3.5-5.0); BILIRUBIN,TOTAL 0.2 mg/dL (0.2-1.0)
[2020-04-17] MEDS ORDERED: MORPHINE SULFATE 2 MG/ML 1ML SYG ONE (17:27)
== END 2020-04-17 17:54 | disposition home or self-care (01) ==
LOC: EDH 14:31
DX: E27.1 Primary adrenocortical insufficiency (principal); R10.11 Right upper quadrant pain; E86.0 Dehydration; Z90.49 Acquired absence of other specified parts of digestive tract; Z88.5 Allergy status to narcotic agent; Z88.0 Allergy status to penicillin; Z88.2 Allergy status to sulfonamides; Z88.6 Allergy status to analgesic agent
CPT/HCPCS: 36415; 80053; 85025; 96361; 96374; 96375; 96376; 99284; J1200 ×2; J2270; J2930; J7120

== ENCOUNTER 2020-04-21 07:51 | Emergency (ER) | payer OTHER ==
[2020-04-21] MEDS ORDERED: MORPHINE SULFATE 2 MG/ML 1ML SYG ONE ×2 (08:55→11:26)
[2020-04-21] MEDS ORDERED: ONDANSETRON HCL 4 MG/2 ML VIAL ONE (08:55)
[2020-04-21] MEDS ORDERED: DiphenhydrAMINE HCL 50 MG/ML VIAL ONE ×2 (08:55→11:26)
[2020-04-21 08:59] LABS: BASOPHILS % (AUTO) 0.6 % (0.0-5.0); EOSINOPHILS % (AUTO) 1.2 % (0.0-8.0); HEMATOCRIT 38.1 % (36-48); LYMPHOCYTES % (AUTO) 20.4 % (21.0-51.0); MEAN CORPUSCULAR HEMOGLOBIN 31.1 pg (27.0-33.0); MEAN CORPUSCULAR HGB CONC 33.6 g/dL (32.0-36.0); MEAN CORPUSCULAR VOLUME 92.7 fL (79-99); MONOCYTES % (AUTO) 8.2 % (3.0-13.0); NEUTROPHILS % (AUTO) 65.7 % (40.0-77.0); PLATELET COUNT (AUTO) 330 K/uL (130-400); RED BLOOD CELL COUNT(AUTO) 4.11 MIL/uL (4.00-5.50); RED CELL DISTRIBUTION WIDTH 18.5 % (11.0-15.5); WHITE BLOOD COUNT (AUTO) 12.2 K/uL (4.8-10.8)
[2020-04-21 09:05] LABS: CREATININE 0.9 mg/dL (0.5-1.5); POTASSIUM 4.1 mmol/L (3.5-5.1)
[2020-04-21 09:10] LABS: ALBUMIN 3.3 g/dL (3.5-5.0); BILIRUBIN,TOTAL 0.3 mg/dL (0.2-1.0); TOTAL PROTEIN, SERUM 6.9 g/dL (6.0-8.3)
[2020-04-21 09:29] LABS: APPEARANCE,URINE Clear (CLEAR); BILIRUBIN,URINE Negative (NEGATIVE); COLOR,URINE Yellow (YELLOW); GLUCOSE, URINE (UA) Negative (NEGATIVE); KETONES,URINE Negative (NEGATIVE); LEUKOCYTE ESTERASE ,URINE Small (NEGATIVE); NITRATE,URINE Negative (NEGATIVE); OCCULT BLOOD,URINE Trace (NEGATIVE); PH,URINE 6.5 (5.0-8.0); PROTEIN,URINE Negative (NEGATIVE); UROBILINOGEN,URINE 0.2 mg/dL (0.2-1.0)
[2020-04-21] MEDS ORDERED: METHYLPREDNISOLONE SOD SUCC 125MG/2ML VIAL ONE (09:29)
[2020-04-21 09:32] LABS: BACTERIA,URINE Rare /HPF (None Seen); HCG,QUAL RESULT NEGATIVE (NEGATIVE); RBC,URINE 0-1 /HPF (0-1); SQUAMOUS EPITHELIAL CELL,UR Few /HPF (0-2); WBC,URINE 0-1 /HPF (0-1)
== END 2020-04-21 11:47 | disposition home or self-care (01) ==
LOC: EDH 07:51
DX: R10.9 Unspecified abdominal pain (principal); Z90.49 Acquired absence of other specified parts of digestive tract; Z88.5 Allergy status to narcotic agent; Z88.6 Allergy status to analgesic agent; Z88.8 Allergy status to other drugs, medicaments and biological substances; Z88.1 Allergy status to other antibiotic agents
CPT/HCPCS: 36415; 74176; 80053; 81001; 81025; 83605; 83690; 85025; 87040; 96361; 96374; 96375; 96376; 99284; J1200 ×2; J2405; J2930

== ENCOUNTER 2020-04-22 13:38 | Emergency (ER) | payer OTHER ==
[2020-04-22 14:18] LABS: BASOPHILS % (AUTO) 0.1 % (0.0-5.0); LYMPHOCYTES % (AUTO) 7.1 % (21.0-51.0); MEAN CORPUSCULAR HEMOGLOBIN 30.5 pg (27.0-33.0); MEAN CORPUSCULAR HGB CONC 32.9 g/dL (32.0-36.0); MEAN CORPUSCULAR VOLUME 92.7 fL (79-99); MONOCYTES % (AUTO) 6.2 % (3.0-13.0); NEUTROPHILS % (AUTO) 85.8 % (40.0-77.0); PLATELET COUNT (AUTO) 342 K/uL (130-400); RED CELL DISTRIBUTION WIDTH 18.4 % (11.0-15.5); WHITE BLOOD COUNT (AUTO) 21.2 K/uL (4.8-10.8)
[2020-04-22] MEDS ORDERED: ONDANSETRON HCL 4 MG/2 ML VIAL ONE ×2 (14:20→18:57)
[2020-04-22] MEDS ORDERED: DiphenhydrAMINE HCL 50 MG/ML VIAL ONE ×2 (14:20→18:57)
[2020-04-22] MEDS ORDERED: MORPHINE SULFATE 2 MG/ML 1ML SYG ONE ×2 (14:20→18:57)
[2020-04-22] MEDS ORDERED: SODIUM CHLORIDE 0.9% 1000ML 1,000 ML IV ONE (14:21)
[2020-04-22 14:26] LABS: CREATININE 1.1 mg/dL (0.5-1.5); POTASSIUM 4.2 mmol/L (3.5-5.1)
[2020-04-22 14:31] LABS: ALBUMIN 3.5 g/dL (3.5-5.0); BILIRUBIN,TOTAL 0.2 mg/dL (0.2-1.0); TOTAL PROTEIN, SERUM 7.3 g/dL (6.0-8.3)
[2020-04-22 17:04] LABS: APPEARANCE,URINE Clear (CLEAR); BILIRUBIN,URINE Negative (NEGATIVE); COLOR,URINE Yellow (YELLOW); GLUCOSE, URINE (UA) Negative (NEGATIVE); KETONES,URINE Negative (NEGATIVE); LEUKOCYTE ESTERASE ,URINE Small (NEGATIVE); NITRATE,URINE Negative (NEGATIVE); OCCULT BLOOD,URINE Trace (NEGATIVE); PH,URINE 6.5 (5.0-8.0); PROTEIN,URINE Negative (NEGATIVE); UROBILINOGEN,URINE 0.2 mg/dL (0.2-1.0)
[2020-04-22 17:21] LABS: BACTERIA,URINE Few /HPF (None Seen); MUCUS,URINE Few LPF (None Seen); SQUAMOUS EPITHELIAL CELL,UR Moderate /HPF (0-2)
== END 2020-04-22 19:39 | disposition home or self-care (01) ==
LOC: EDH 13:38
DX: E27.1 Primary adrenocortical insufficiency (principal); R10.9 Unspecified abdominal pain; G89.29 Other chronic pain; R11.2 Nausea with vomiting, unspecified; Z90.49 Acquired absence of other specified parts of digestive tract; Z98.890 Other specified postprocedural states; Z88.1 Allergy status to other antibiotic agents; Z88.6 Allergy status to analgesic agent; Z88.5 Allergy status to narcotic agent; Z88.8 Allergy status to other drugs, medicaments and biological substances; Z87.442 Personal history of urinary calculi
CPT/HCPCS: 36415; 80053; 81001; 85025; 96361; 96374; 96375; 96376; 99284; J1200 ×2; J2405 ×2; J7030

== ENCOUNTER 2020-04-26 10:24 | Emergency (ER) | payer OTHER ==
[2020-04-26] MEDS ORDERED: DiphenhydrAMINE HCL 50 MG/ML VIAL ONE (11:16)
== END 2020-04-26 12:28 | disposition left against medical advice (07) ==
LOC: EDH 10:24
DX: R11.10 Vomiting, unspecified (principal); Z90.49 Acquired absence of other specified parts of digestive tract; Z88.1 Allergy status to other antibiotic agents; Z88.6 Allergy status to analgesic agent; Z88.8 Allergy status to other drugs, medicaments and biological substances; Z88.2 Allergy status to sulfonamides
CPT/HCPCS: 96372; 99283; J1200